=== PATIENT | female | born 2000 | race Hispanic/Latino ===

== ENCOUNTER 2022-06-21 03:54 | Emergency (ER) | payer OTHER ==
[~2022-06-21] VITALS: Ht 165.1 cm; Wt 79.4 kg
[2022-06-21] MEDS ORDERED: ACETAMINOPHEN 500 MG TABLET PO ONE (05:00)
[2022-06-21 06:00] VITALS: BP 105/73
[2022-06-21] MEDS ORDERED: ALBU8.5H8 IH (06:33)
[2022-06-21] MEDS ORDERED: BUDE180H IH (06:33)
[2022-06-21] MEDS ORDERED: IBUP-2070 PO (06:33)
== END 2022-06-21 06:45 | disposition home or self-care (01) ==
LOC: EDH 03:54
DX: M54.6 Pain in thoracic spine (principal); J45.20 Mild intermittent asthma, uncomplicated
CPT/HCPCS: 71046; 81025